=== PATIENT | female | born 1940 | race Caucasian/White ===

== ENCOUNTER 2020-04-27 10:17 | Day surgery (SDC) | payer MEDICARE, MEDICAID ==
[2020-04-26 12:38] LABS: BASOPHILS % (AUTO) 0.5 % (0-1); EOSINOPHILS # (AUTO) 0.1 X10'3 (0-0.9); EOSINOPHILS % (AUTO) 1.6 % (0-6); HEMATOCRIT 42.8 % (35.0-45.0); HEMOGLOBIN 14.3 g/dl (12.0-16.0); LYMPHOCYTES % (AUTO) 20.9 % (21-51); MEAN CORPUSCULAR HEMOGLOBIN 30.8 PG (27.0-31.0); MEAN CORPUSCULAR HGB CONC 33.3 g/dL (33.0-36.5); MEAN CORPUSCULAR VOLUME 92.4 FL (78-98); MEAN PLATELET VOLUME 8.6 FL (7.4-10.4); MONOCYTES # (AUTO) 0.7 X10'3 (0-0.9); MONOCYTES % (AUTO) 7.8 % (2-12); NEUTROPHILS # (AUTO) 6.5 X10'3 (1.8-7.7); NEUTROPHILS % (AUTO) 69.2 % (42-75); PLATELET COUNT 156 X10'3 (140-440); RED BLOOD COUNT 4.63 X10'6 (4.20-5.60); RED CELL DISTRIBUTION WIDTH 13.8 % (11.5-14.5); WHITE BLOOD COUNT 9.4 X10'3 (4.5-11.0)
[2020-04-26 12:46] LABS: ALBUMIN 3.8 G/DL (3.4-5.0); ANION GAP 7 (8-16); BLOOD UREA NITROGEN 31 MG/DL (7-18); BUN/CREATININE RATIO 25.8 (6.6-38.0); CHLORIDE 104 MMOL/L (99-107); GLUCOSE 96 MG/DL (70-104); POTASSIUM 4.6 MMOL/L (3.5-5.1); SODIUM 139 MMOL/L (135-145); TOTAL CARBON DIOXIDE 28.1 MMOL/L (24-32); eGFR 43 ML/MIN
[2020-04-27] VITALS (16 sets, daily range): BP systolic 92–213; BP diastolic 55–143
[~2020-04-27] VITALS: Ht 167.6 cm; Wt 59.4 kg
--- NOTE | 2020-04-27 10:15 | NUR ---
Pt in for [facility]UREN to clear for cardioversion. Pt currently in [facility]. Dr. Zhao notified. Will wait for Dr. Zhao to see pt before discharge. Addendum: 04/27/20 at 1701 by Noah Clemons RN Amended: Links added.
[2020-04-27] MEDS ORDERED: MIDAZolam 1mg/ml 10ml vial IV ONE (11:10)
[2020-04-27] MEDS ORDERED: diphenhydrAMINE 25mg capsule PO ONE ×2 (11:10→11:20)
[2020-04-27] MEDS ORDERED: amiodarone 150mg/dext, iso-os 100 ML IV ONE (11:10)
[2020-04-27] MEDS ORDERED: LORazepam 0.5 MG tablet PO ONE (11:10)
[2020-04-27] MEDS ORDERED: atropine 0.1mg/ml 10ml syringe IV ONE (11:10)
[2020-04-27] MEDS ORDERED: normal saline 1000ml 1,000 ML IV SCH (11:10)
--- NOTE | 2020-04-27 11:30 | NUR ---
Dr. Zhao in to see pt. Pt flipped into afib as walking down hallway to pt room. Prep started to begin LAUREN and proceed with Cardioversion. New meds ordered for procedure. Addendum: 04/27/20 at 1701 by Noah Clemons RN Amended: Links added.
[2020-04-27] MEDS ORDERED: amiodarone/D5 360MG/200ML BAG 200 ML IV ONE (11:50)
[2020-04-27] MEDS ORDERED: fentaNYL/PF 50MCG/1 ML 2ML syringe IV ONE (12:15)
[2020-04-27] MEDS ORDERED: POTA20TA19 PO (13:23)
[2020-04-27] MEDS ORDERED: LOSA25TA96 PO (13:23)
[2020-04-27] MEDS ORDERED: GENOO OP (13:23)
[2020-04-27] MEDS ORDERED: NEOM10DR45 LEFT EAR (13:23)
[2020-04-27] MEDS ORDERED: CARV3.122 PO (13:23)
[2020-04-27] MEDS ORDERED: ALBU8.5H8 IH (13:23)
[2020-04-27] MEDS ORDERED: PREVCR VG (13:23)
[2020-04-27] MEDS ORDERED: CITA20TA27 PO (13:23)
[2020-04-27] MEDS ORDERED: OMEP-50 PO (13:23)
[2020-04-27] MEDS ORDERED: MELO-102 PO (13:23)
[2020-04-27] MEDS ORDERED: MIRA50TA PO (13:23)
[2020-04-27] MEDS ORDERED: TIOT4MIS5 (13:23)
[2020-04-27] MEDS ORDERED: LISI30TA4 PO (13:23)
[2020-04-27] MEDS ORDERED: HYDR-3964 PO (13:23)
== END 2020-04-27 15:05 | disposition home or self-care (01) ==
LOC: SSTAY O 10:17
PROVIDERS: ATTEND Internal Medicine Cardiovascular Disease
DX: I48.19 Other persistent atrial fibrillation (principal); I10 Essential (primary) hypertension; E78.5 Hyperlipidemia, unspecified; J44.9 Chronic obstructive pulmonary disease, unspecified; F17.210 Nicotine dependence, cigarettes, uncomplicated; Z79.899 Other long term (current) drug therapy; Z79.01 Long term (current) use of anticoagulants
CPT/HCPCS: 36415; 80048; 85025; 85610; 93005; J2250; J3010; J7030